=== PATIENT | female | born 1960 | race Hispanic/Latino ===

== ENCOUNTER 2023-07-17 00:26 | Emergency (ER) | payer BC ==
[~2023-07-17] VITALS: Ht 157.5 cm; Wt 56.7 kg
[2023-07-17 00:59] LABS: ABG BASE EXCESS -1.5 mmol/L (-2.0-3.0); ABG HCO3 20.1 mmol/L (21.0-28.0); ABG OXYGEN SATURATION 98.4 % (95.0-99.0); ABG PCO2 27 mmHg (32-45); ABG PH 7.495 (7.35-7.450); DEVICE COMMENT RR; PO2, ARTERIAL BG 108.8 mmHg (83.0-108.0); VENT MODE, BG RA (ROOM AIR)
[2023-07-17] MEDS ORDERED: LORAZEPAM 2 MG TABLET PO ONE (01:00)
[2023-07-17] MEDS ORDERED: HYDROXYZINE 25 MG TABLET PO ONE (01:00)
[2023-07-17 01:43] LABS: BASOPHILS # (AUTO) 0.03 K/uL (0.00-0.20); BASOPHILS % (AUTO) 0.2 % (0.0-5.0); EOSINOPHILS # (AUTO) 0.11 K/uL (0.00-0.70); EOSINOPHILS % (AUTO) 0.9 % (0.0-8.0); HEMATOCRIT 41.6 % (36-48); IMMATURE GRANULOCYTE ABSOLUTE 0.04 K/uL (0-1); LYMPHOCYTES % (AUTO) 16.1 % (21.0-51.0); MEAN CORPUSCULAR HEMOGLOBIN 31.8 pg (27.0-33.0); MEAN CORPUSCULAR HGB CONC 34.4 g/dL (32.0-36.0); MEAN CORPUSCULAR VOLUME 92.4 fL (79-99); MONOCYTES # (AUTO) 0.8 K/uL (0.1-1.0); NEUTROPHILS # (AUTO) 9.6 K/uL (1.8-7.7); NEUTROPHILS % (AUTO) 76.5 % (40.0-77.0); PLATELET COUNT (AUTO) 447 K/uL (130-400); WHITE BLOOD COUNT (AUTO) 12.6 K/uL (4.8-10.8)
[2023-07-17 01:53] LABS: CARBON DIOXIDE 26 mmol/L (21-32); CHLORIDE 104 mmol/L (101-111); CREATININE 0.7 mg/dL (0.5-1.5); GLOMERULAR FILTR. RATE CALC 96 mL/min (>90); GLUCOSE,RANDOM 149 mg/dL (70-105); POTASSIUM 3.1 mmol/L (3.5-5.1); SODIUM SERUM 140 mmol/L (136-145); UREA NITROGEN, BLOOD 10 mg/dL (7-18)
[2023-07-17 02:01] LABS: CREATINE KINASE, TOTAL 36 U/L (21-232)
[2023-07-17] MEDS ORDERED: POTASSIUM BICARB/CIT AC 25 MEQ TABLET.EFF PO ONE (03:00)
[2023-07-17 03:12] VITALS: BP 132/79; PULSE 79; RESP 18; O2SAT 100
== END 2023-07-17 03:16 | disposition home or self-care (01) ==
LOC: EDH 00:26
DX: F41.9 Anxiety disorder, unspecified (principal); E87.6 Hypokalemia; Z90.49 Acquired absence of other specified parts of digestive tract; Z88.1 Allergy status to other antibiotic agents
CPT/HCPCS: 36415; 36600; 80048; 82550; 82803; 84484; 85025; 93005